=== PATIENT | female | born 1960 | race Caucasian/White ===

== ENCOUNTER → 2017-02-11 | Outpatient (CLI) | payer OTHER ==
[~2017-02-11] MED LIST: CLON2TAB2 PO; FLUO20CA19 PO; GABA600T PO; OMEP20CA9 PO; OXYC-223 PO; OXYC5CAP4 PO; TURM500C7 PO; VALA500T4 PO
== END | disposition home or self-care (01) ==
LOC: CFH 08:32
PROVIDERS: ATTEND Internal Medicine Cardiovascular Disease
DX: I77.810 Thoracic aortic ectasia (principal); I08.3 Combined rheumatic disorders of mitral, aortic and tricuspid valves; E78.5 Hyperlipidemia, unspecified; Z87.891 Personal history of nicotine dependence
CPT/HCPCS: 93306

== ENCOUNTER → 2017-05-10 | Outpatient (CLI) | payer OTHER ==
[~2017-05-10] MED LIST changes: -OXYC-223 PO; +OXYC-306 PO; +OXYC5CAP2 PO; -OXYC5CAP4 PO
== END | disposition home or self-care (01) ==
LOC: CFH 09:46
PROVIDERS: ATTEND Internal Medicine
DX: K44.9 Diaphragmatic hernia without obstruction or gangrene (principal); R05 Cough
CPT/HCPCS: 71020

== ENCOUNTER → 2017-08-26 | Outpatient (CLI) | payer OTHER | END | disposition home or self-care (01) | LOC: CFH 12:13 | PROVIDERS: ATTEND Internal Medicine Cardiovascular Disease | DX: R07.89 Other chest pain (principal) | CPT/HCPCS: 78452; 93017; A9502 ==

== ENCOUNTER → 2018-02-28 | Outpatient (CLI) | payer OTHER | END | disposition home or self-care (01) | LOC: CFH 09:42 | PROVIDERS: ATTEND Internal Medicine Cardiovascular Disease | DX: I08.0 Rheumatic disorders of both mitral and aortic valves (principal); E78.5 Hyperlipidemia, unspecified | CPT/HCPCS: 93306 ==

== ENCOUNTER 2019-03-29 13:30 | Outpatient (CLI) | payer OTHER ==
[~2019-03-29 13:30] MED LIST changes: -CLON2TAB2 PO; +CLON2TAB9 PO
== END 2019-03-29 23:59 | disposition home or self-care (01) ==
LOC: CVU 13:30
PROVIDERS: ATTEND Internal Medicine Cardiovascular Disease
DX: I08.3 Combined rheumatic disorders of mitral, aortic and tricuspid valves (principal); E78.5 Hyperlipidemia, unspecified
CPT/HCPCS: 0399T; 93306

== ENCOUNTER 2020-02-05 11:13 | Emergency (ER) | payer OTHER ==
[~2020-02-05] VITALS: Ht 172.7 cm; Wt 95.4 kg
--- NOTE | 2020-02-05 11:32 | NUR ---
PT IN HOSPITAL GOWN. PT AMBULATING STEADILY TO BATHROOM TO PROVIDE URINE SAMPLE.
[2020-02-05] MEDS ORDERED: GLUCAGON 1 MG ONE ×2 (11:56→12:05)
[2020-02-05] MEDS ORDERED: ONDANSETRON 2MG/ML, 2ML ONE (11:56)
[2020-02-05] MEDS ORDERED: ONDANSETRON 2MG/ML, 2ML IVPush ONE (12:00)
[2020-02-05] MEDS ORDERED: GLUCAGON 1 MG IVPush ONE (12:00)
[2020-02-05] MEDS ORDERED: SODIUM CHLORIDE FLUSH 10ML SYR IVF ONE (12:00)
--- NOTE | 2020-02-05 12:02 | NUR ---
PT GOING FOR ESOPHOGRAM
[2020-02-05 12:18] LABS: ALANINE AMINOTRANSFERASE 39 U/L (12-78); ALBUMIN 3.8 g/dL (3.4-5.0); ANION GAP 12 mmol/L (5-15); CHLORIDE 113 mmol/L (98-107); CREATININE 0.84 mg/dL (0.55-1.02)
[2020-02-05 12:20] LABS: ALKALINE PHOSPHATASE 77 U/L (45-117); BILIRUBIN,TOTAL 0.4 mg/dL (0.2-1.0); TOTAL PROTEIN 8.2 g/dL (6.4-8.2)
[2020-02-05 12:24] LABS: BASOPHILS # (AUTO) 0.05 x10^3/uL (0-0.1); BASOPHILS % (AUTO) 1 % (0-1); EOSINOPHILS # (AUTO) 0.15 x10^3/uL (0-0.4); EOSINOPHILS % (AUTO) 1 % (1-7); LYMPHOCYTES # (AUTO) 1.35 x10^3/uL (1-3.4); LYMPHOCYTES % (AUTO) 13 % (22-44); MD NO; MEAN CORPUSCULAR HGB CONC 32.3 g/dL (32.4-35.8); MEAN CORPUSCULAR VOLUME 99.1 fL (80-100); MEAN PLATELET VOLUME 8.4 fL (7.4-10.4); MONOCYTES # (AUTO) 0.71 x10^3/uL (0.2-0.8); MONOCYTES % (AUTO) 7 % (2-9); NEUTROPHILS # (AUTO) 8.18 x10^3/uL (1.8-6.8); NEUTROPHILS % (AUTO) 78 % (42-75); PLATELET COUNT 373 x10^3/uL (130-400); RED BLOOD COUNT 4.25 x10^6/uL (3.82-5.3); RED CELL DISTRIBUTION WIDTH 14.8 % (9.6-15.2)
[2020-02-05] MEDS ORDERED: OMNIPAQUE 350 MG/ML, 150 ML BOTTLE ONE (12:27)
[2020-02-05] MEDS ORDERED: KETOROLAC 30 MG/1 ML ONE (12:46)
[2020-02-05] MEDS ORDERED: KETOROLAC 30 MG/1 ML IVPush ONE (13:00)
[2020-02-05] MEDS ORDERED: FENTANYL PF 100 MCG/2ML ONE ×2 (13:31)
[2020-02-05] MEDS ORDERED: MIDAZOLAM 1 MG/ML, 5ML ONE ×2 (13:32)
--- NOTE | 2020-02-05 13:36 | NUR ---
PT STATED SHE FELT BETTER AFTER ORDERED MED GIVEN. ERP AWARE, PT GIVEN WATER. PT HOWEVER UNABLE TO HOLD WATER DOWN. PT TO BE MOVED TO TRAUMA ROOM FOR SEDATION.
--- NOTE | 2020-02-05 13:47 | NUR ---
JAYNE RN: ENDOSCOPY TEAM AT .
[2020-02-05] MEDS ORDERED: PROPOFOL 10 MG/ML, 20ML ONE ×2 (13:52→14:03)
[2020-02-05] MEDS ORDERED: PROPOFOL 10 MG/ML, 20ML IVPush ONE (14:00)
[2020-02-05] MEDS ORDERED: KETAMINE 10 MG/ML, 20ML ONE (14:11)
--- NOTE | 2020-02-05 14:25 | NUR ---
PT JUST FINISHED WITH ENDO TEAM. PT A&OX4, WILL CONTINUE TO MONITOR.
[2020-02-05 15:17] VITALS: BP 134/89
== END 2020-02-05 15:26 | disposition home or self-care (01) ==
LOC: ED 12:11
DX: T18.128A Food in esophagus causing other injury, initial encounter (principal); R11.2 Nausea with vomiting, unspecified; R94.31 Abnormal electrocardiogram [ECG] [EKG]; X58.XXXA Exposure to other specified factors, initial encounter; Y93.89 Activity, other specified; Y92.89 Other specified places as the place of occurrence of the external cause; Y99.8 Other external cause status
CPT/HCPCS: 36415; 43247; 74220; 80053; 85025; 93005; 96374; 96375; 99152; 99285; J1610; J1885; J2250; J2405; J3010; Q9967

== ENCOUNTER → 2020-04-01 | Outpatient (CLI) | payer OTHER | END | disposition home or self-care (01) | LOC: CFH 08:50 | PROVIDERS: ATTEND Internal Medicine Cardiovascular Disease | DX: I08.3 Combined rheumatic disorders of mitral, aortic and tricuspid valves (principal); E78.2 Mixed hyperlipidemia | CPT/HCPCS: 75571; 93306 ==

== ENCOUNTER 2020-05-12 10:02 | Inpatient (IN) | payer OTHER ==
[2020-05-12] VITALS (11 sets, daily range): BP systolic 96–130; BP diastolic 62–84
[~2020-05-12] VITALS: Ht 172.7 cm; Wt 92.8 kg
--- NOTE | 2020-05-12 10:34 | NUR ---
PT BIB [facility] FROM HOME. PT STATES DIZZINESS AND G/O WEAKNESS X2 DAYS WELL. UPON ARRIVAL AT PT'S SIDE, EMS DID AN EKG, PT NOTED PER EMS TO BE IN AN SVT RHYTHM. PT GIVEN ADENOSINE 6MG IV X1 BY EMS, PT THEN CONVERTED TO A SINUS TACHY RHYTHM PER EMS. 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 UPON ARRIVAL TO ER, PT STATES "I FEEL MUCH BETTER." PT PLACED ON MONITORS, VSS. ERMD AT BEDSIDE FOR ASSESSMENT.
[2020-05-12 10:51] LABS: MEAN CORPUSCULAR HEMOGLOBIN 31.5 pg (27.0-34.8); MEAN CORPUSCULAR HGB CONC 31.7 g/dL (32.4-35.8); MEAN CORPUSCULAR VOLUME 99.3 fL (80-100); MEAN PLATELET VOLUME 8.2 fL (7.4-10.4); PLATELET COUNT 294 x10^3/uL (130-400); RED BLOOD COUNT 2.43 x10^6/uL (3.82-5.3); RED CELL DISTRIBUTION WIDTH 19.1 % (9.6-15.2)
[2020-05-12 10:58] LABS: PROTHROMBIN TIME 10.3 Seconds (9.6-11.5)
[2020-05-12 11:01] LABS: ALBUMIN 2.9 g/dL (3.4-5.0); ANION GAP 7 mmol/L (5-15); CALCIUM 8.2 mg/dL (8.5-10.1); CHLORIDE 113 mmol/L (98-107)
[2020-05-12 11:05] LABS: ALANINE AMINOTRANSFERASE 39 U/L (12-78); ALKALINE PHOSPHATASE 37 U/L (45-117); BILIRUBIN,TOTAL 0.2 mg/dL (0.2-1.0); CREATININE 0.75 mg/dL (0.55-1.02); TOTAL PROTEIN 5.7 g/dL (6.4-8.2)
[2020-05-12 11:15] LABS: BASOPHILS # (AUTO) 0.01 x10^3/uL (0-0.1); BASOPHILS % (AUTO) 0 % (0-1); EOSINOPHILS # (AUTO) 0.05 x10^3/uL (0-0.4); EOSINOPHILS % (AUTO) 0 % (1-7); LYMPHOCYTES # (AUTO) 1.74 x10^3/uL (1-3.4); LYMPHOCYTES % (AUTO) 12 % (22-44); MD MORPH REVIEW ONLY; MONOCYTES % (AUTO) 6 % (2-9); NEUTROPHILS # (AUTO) 11.37 x10^3/uL (1.8-6.8); NEUTROPHILS % (AUTO) 81 % (42-75)
[2020-05-12 11:16] LABS: <PLATELET ESTIMATE> ADEQUATE; <PLT MORPHOLOGY> NORMAL PLT MORPH; ANISOCYTOSIS 1+; HYPOCHROMIA 1+; OVALOCYTES 1+; POLYCHROMASIA 1+
--- NOTE | 2020-05-12 11:48 | NUR ---
FIELD SUPPORT ENGINEER FACIAL FRACTURE DOCTOR PAGED @[phone] AND ANSWERED @[phone]
--- NOTE | 2020-05-12 11:49 | NUR ---
WASTEWATER SUPERVISOR Ezequiel GODOY PAGED AGAIN @[phone]
--- NOTE | 2020-05-12 11:56 | NUR ---
PANEL MACHINE SETTER Ezequiel IN ER AND MADE CONTACT WITH E.R. DOCTOR.
--- NOTE | 2020-05-12 12:15 | NUR ---
PT BLOOD STARTED PER ORDERS. ALL APPROPRIATE PRE ADMINISTRATION CHECKS DONE PER PROTOCOL. [facility], PT AWARE OF POC. PT'S AT BEDSIDE. REMAINS ON MONITORS, VSS. CONT TO MONITOR.
[2020-05-12] MEDS ORDERED: LORazepam 2 MG/ML, 1ML IVPush ONE (12:30)
[2020-05-12] MEDS ORDERED: LORazepam 2 MG/ML, 1ML ONE (12:41)
[2020-05-12] MEDS ORDERED: PANTOPRAZOLE 40 MG IV ONE (12:41)
[2020-05-12] MEDS: PANTOPRAZOLE 40 MG IV IVPush SCH (12:46)
[2020-05-12] MEDS ORDERED: OXYcodone/APAP 7.5/325MG TABLET PO PRN (13:00)
[2020-05-12] MEDS ORDERED: ONDANSETRON ODT 4 MG PO PRN (13:00)
[2020-05-12] MEDS ORDERED: ONDANSETRON 2MG/ML, 2ML IVPush PRN (13:00)
--- NOTE | 2020-05-12 13:08 | NUR ---
PT TOLERATING BLOOD TRANSFUSING WELL. REPORT GIVEN TO SAMARIA RN, PT OK TO TRANSFER TO FLOOR.
--- NOTE | 2020-05-12 13:22 | NUR ---
PT TRANSFERED TO FLOOR, HAS ALL OWN BELONGINGS UPON TRANSFER. BLOOD STILL INFUSING UPON TRANSFER.
[2020-05-12] MEDS: CEFTRIAXONE PMX 2GM/50ML 50 ML IV SCH (14:25)
[2020-05-12] MEDS: LACTATED RINGERS 1,000 ML IV SCH (14:38)
[2020-05-12] MEDS: ACETAMINOPHEN 325 MG TABLET PO PRN (15:17)
[2020-05-12] MEDS ORDERED: TURMERIC ROOT EXTRACT PO SCH (16:00)
[2020-05-12] MEDS ORDERED: LORazepam 0.5MG TABLET PO ONE (16:00)
[2020-05-12] MEDS: LACTOBACILLUS CHEW TABLET PO SCH ×2 (16:21→20:00)
[2020-05-12] MEDS ORDERED: GABA-826 PO (16:43)
[2020-05-12] MEDS ORDERED: FLUO25PO PO (16:50)
[2020-05-12] MEDS: VALACYCLOVIR 500MG TABLET PO SCH (19:59)
[2020-05-12] MEDS: GABAPENTIN 400 MG CAPSULE PO SCH (20:00)
[2020-05-13] VITALS (13 sets, daily range): BP systolic 95–125; BP diastolic 40–85
[2020-05-13] MEDS: PANTOPRAZOLE 40 MG IV IVPush SCH ×3 (01:14→13:48)
[2020-05-13] MEDS: MELATONIN 5 MG TABLET PO PRN ×2 (01:14→20:19)
[2020-05-13] MEDS: ACETAMINOPHEN 325 MG TABLET PO PRN ×2 (03:26→14:48)
[2020-05-13] MEDS ORDERED: ADENOSINE 6 MG/2 ML IVPush ONE ×4 (05:30→13:00)
[2020-05-13 05:32] LABS: CHLORIDE 113 mmol/L (98-107)
[2020-05-13 05:37] LABS: % IRON SATURATION 25 % (20-55); ANION GAP 8 mmol/L (5-15); CALCIUM 8.5 mg/dL (8.5-10.1); CREATININE 0.71 mg/dL (0.55-1.02); IRON LEVEL 77 mcg/dL (50-170); TOTAL IRON BINDING CAPACITY 303 mcg/dL (250-450)
[2020-05-13] MEDS: LACTATED RINGERS 1,000 ML IV SCH ×2 (06:41→14:37)
[2020-05-13] MEDS ORDERED: CHLORHEXIDINE 15 ML UDC MM ONE (08:00)
[2020-05-13] MEDS ORDERED: GABAPENTIN 300 MG CAPSULE PO SCH (09:00)
[2020-05-13] MEDS: VALACYCLOVIR 500MG TABLET PO SCH ×2 (09:02→20:19)
[2020-05-13] MEDS: FLUOXETINE 10 MG CAP PO SCH (09:02)
[2020-05-13] MEDS: LACTOBACILLUS CHEW TABLET PO SCH ×3 (09:02→20:19)
[2020-05-13 10:20] LABS: MEAN CORPUSCULAR HEMOGLOBIN 31.5 pg (27.0-34.8); MEAN CORPUSCULAR HGB CONC 32.3 g/dL (32.4-35.8); MEAN CORPUSCULAR VOLUME 97.7 fL (80-100); MEAN PLATELET VOLUME 7.9 fL (7.4-10.4); PLATELET COUNT 257 x10^3/uL (130-400); RED BLOOD COUNT 2.45 x10^6/uL (3.82-5.3); RED CELL DISTRIBUTION WIDTH 18.8 % (9.6-15.2)
[2020-05-13 10:46] LABS: BASOPHILS # (AUTO) 0.04 x10^3/uL (0-0.1); BASOPHILS % (AUTO) 1 % (0-1); EOSINOPHILS # (AUTO) 0.14 x10^3/uL (0-0.4); EOSINOPHILS % (AUTO) 2 % (1-7); LYMPHOCYTES # (AUTO) 1.35 x10^3/uL (1-3.4); LYMPHOCYTES % (AUTO) 18 % (22-44); MD SCAN; MONOCYTES # (AUTO) 0.51 x10^3/uL (0.2-0.8); MONOCYTES % (AUTO) 7 % (2-9); NEUTROPHILS # (AUTO) 5.37 x10^3/uL (1.8-6.8); NEUTROPHILS % (AUTO) 72 % (42-75)
[2020-05-13] MEDS ORDERED: ADENOSINE 6 MG/2 ML ONE ×2 (11:46→11:50)
[2020-05-13] MEDS ORDERED: METOPROLOL 1 MG/ML, 5ML ONE (12:41)
[2020-05-13] MEDS ORDERED: METOPROLOL 1 MG/ML, 5ML IVPush ONE (13:00)
[2020-05-13] MEDS: DILTIAZEM 125 MG in SODIUM CHLORIDE 0.9% 100 ML IV SCH (13:42)
[2020-05-13] MEDS: CEFTRIAXONE PMX 2GM/50ML 50 ML IV SCH (13:47)
[2020-05-13] MEDS: GABAPENTIN 400 MG CAPSULE PO SCH (20:19)
[2020-05-14 00:58] VITALS: BP 113/71
[2020-05-14] MEDS: PANTOPRAZOLE 40 MG IV IVPush SCH ×2 (01:17→07:30)
[2020-05-14] MEDS: LACTATED RINGERS 1,000 ML IV SCH (01:17)
[2020-05-14] MEDS: DILTIAZEM 125 MG in SODIUM CHLORIDE 0.9% 100 ML IV SCH ×2 (01:23→03:09)
[2020-05-14 05:22] LABS: MEAN CORPUSCULAR HEMOGLOBIN 31.8 pg (27.0-34.8); MEAN CORPUSCULAR HGB CONC 31.9 g/dL (32.4-35.8); MEAN CORPUSCULAR VOLUME 99.7 fL (80-100); PLATELET COUNT 250 x10^3/uL (130-400); RED BLOOD COUNT 2.28 x10^6/uL (3.82-5.3); RED CELL DISTRIBUTION WIDTH 19.1 % (9.6-15.2)
[2020-05-14 05:59] LABS: BASOPHILS # (AUTO) 0.05 x10^3/uL (0-0.1); BASOPHILS % (AUTO) 1 % (0-1); EOSINOPHILS # (AUTO) 0.21 x10^3/uL (0-0.4); EOSINOPHILS % (AUTO) 3 % (1-7); LYMPHOCYTES # (AUTO) 1.08 x10^3/uL (1-3.4); LYMPHOCYTES % (AUTO) 14 % (22-44); MD SCAN; MONOCYTES % (AUTO) 9 % (2-9); NEUTROPHILS # (AUTO) 5.54 x10^3/uL (1.8-6.8); NEUTROPHILS % (AUTO) 73 % (42-75)
[2020-05-14] MEDS: SODIUM CHLORIDE 0.9% 1,000 ML IV SCH ×2 (08:33→14:56)
[2020-05-14] MEDS: VALACYCLOVIR 500MG TABLET PO SCH ×2 (08:33→21:11)
[2020-05-14] MEDS: FLUOXETINE 10 MG CAP PO SCH (08:33)
[2020-05-14] MEDS: LACTOBACILLUS CHEW TABLET PO SCH ×3 (08:33→21:11)
[2020-05-14 08:51] VITALS: BP 135/79
[2020-05-14] MEDS ORDERED: MIDAZOLAM 1 MG/ML, 2ML ONE (11:13)
[2020-05-14] MEDS ORDERED: FENTANYL PF 100 MCG/2ML ONE (11:13)
[2020-05-14] MEDS ORDERED: LIDOCAINE 1%, 20ML ONE (11:13)
[2020-05-14] MEDS ORDERED: ISOPROTERENOL 0.2MG/ML, 5ML ONE (11:48)
[2020-05-14] MEDS ORDERED: ACETAMINOPHEN 325 MG TABLET PO PRN (13:00)
[2020-05-14] MEDS: CEFTRIAXONE PMX 2GM/50ML 50 ML IV SCH (13:40)
[2020-05-14 14:00] VITALS: BP 116/77
[2020-05-14 14:03] LABS: ANION GAP 9 mmol/L (5-15); CALCIUM 8.7 mg/dL (8.5-10.1); CHLORIDE 111 mmol/L (98-107); CREATININE 0.67 mg/dL (0.55-1.02)
[2020-05-14] MEDS: ACETAMINOPHEN 325 MG TABLET PO PRN (16:38)
[2020-05-14 19:52] VITALS: BP 135/81
[2020-05-14] MEDS: MELATONIN 5 MG TABLET PO PRN (21:11)
[2020-05-14] MEDS: GABAPENTIN 400 MG CAPSULE PO SCH (21:11)
[2020-05-14 23:41] VITALS: BP 119/68
[2020-05-15 00:30] VITALS: BP 120/68
[2020-05-15 05:36] LABS: MEAN CORPUSCULAR HEMOGLOBIN 32.4 pg (27.0-34.8); MEAN CORPUSCULAR HGB CONC 32.9 g/dL (32.4-35.8); MEAN CORPUSCULAR VOLUME 98.4 fL (80-100); MEAN PLATELET VOLUME 8.2 fL (7.4-10.4); PLATELET COUNT 288 x10^3/uL (130-400); RED BLOOD COUNT 2.48 x10^6/uL (3.82-5.3); RED CELL DISTRIBUTION WIDTH 18.7 % (9.6-15.2)
[2020-05-15] MEDS: PANTOPRAZOLE 40MG TABLET PO SCH (05:41)
[2020-05-15 06:07] LABS: BASOPHILS # (AUTO) 0.02 x10^3/uL (0-0.1); BASOPHILS % (AUTO) 0 % (0-1); EOSINOPHILS # (AUTO) 0.21 x10^3/uL (0-0.4); EOSINOPHILS % (AUTO) 3 % (1-7); LYMPHOCYTES # (AUTO) 1.34 x10^3/uL (1-3.4); LYMPHOCYTES % (AUTO) 16 % (22-44); MD SCAN; MONOCYTES # (AUTO) 0.74 x10^3/uL (0.2-0.8); MONOCYTES % (AUTO) 9 % (2-9); NEUTROPHILS # (AUTO) 6.01 x10^3/uL (1.8-6.8); NEUTROPHILS % (AUTO) 72 % (42-75)
[2020-05-15] MEDS: ACETAMINOPHEN 325 MG TABLET PO PRN (06:28)
[2020-05-15 07:22] VITALS: BP 122/80
[2020-05-15] MEDS: VALACYCLOVIR 500MG TABLET PO SCH ×2 (09:02→20:17)
[2020-05-15] MEDS: LACTOBACILLUS CHEW TABLET PO SCH ×3 (09:02→20:17)
[2020-05-15] MEDS: FLUOXETINE 10 MG CAP PO SCH (09:02)
[2020-05-15] MEDS ORDERED: PROPOFOL 50 ML ONE (11:05)
[2020-05-15 12:09] VITALS: BP 110/71
[2020-05-15] MEDS ORDERED: CHLORHEXIDINE 15 ML UDC ONE (13:19)
[2020-05-15] MEDS ORDERED: CHLORHEXIDINE 15 ML UDC MM ONE (13:30)
[2020-05-15] MEDS ORDERED: ACETAMINOPHEN 650 MG/20.3 ML UDC ONE (14:18)
[2020-05-15] MEDS ORDERED: FENTANYL PF 100 MCG/2ML IV PRN (14:30)
[2020-05-15] MEDS ORDERED: hydrALAzine 20 MG/ML, 1ML IV PRN (14:30)
[2020-05-15] MEDS ORDERED: EPHEDRINE 50 MG/ML, 1ML IVPush PRN (14:30)
[2020-05-15] MEDS ORDERED: ONDANSETRON 2MG/ML, 2ML IVPush PRN (14:30)
[2020-05-15] MEDS ORDERED: ACETAMINOPHEN 325 MG TABLET PO PRN (14:30)
[2020-05-15] MEDS ORDERED: LABETALOL 5MG/ML, 20ML IV PRN (14:30)
[2020-05-15] MEDS ORDERED: MEPERIDINE/PF 25MG/0.5ML IVPush PRN (14:30)
[2020-05-15] MEDS ORDERED: HYDROmorphone 1 MG/ML, 1ML INJ IVPush PRN (14:30)
[2020-05-15] MEDS ORDERED: PROMETHAZINE 25 MG/ML, 1ML IVPush PRN (14:30)
[2020-05-15] MEDS ORDERED: OXYcodone 5 MG/5 ML ORAL.SOL UDC PO PRN (14:30)
[2020-05-15] MEDS: CEFTRIAXONE PMX 2GM/50ML 50 ML IV SCH (14:45)
[2020-05-15 20:02] VITALS: BP 135/69
[2020-05-15] MEDS: GABAPENTIN 400 MG CAPSULE PO SCH (20:17)
[2020-05-15] MEDS: MELATONIN 5 MG TABLET PO PRN (20:19)
[2020-05-16 00:41] VITALS: BP 105/68
[2020-05-16] MEDS: PANTOPRAZOLE 40MG TABLET PO SCH (05:26)
[2020-05-16] MEDS ORDERED: DIPHENHYDRAMINE 25 MG CAPSULE PO ONE (06:00)
[2020-05-16 06:18] VITALS: BP 122/78
[2020-05-16] MEDS: LACTOBACILLUS CHEW TABLET PO SCH (09:27)
[2020-05-16] MEDS: FLUOXETINE 10 MG CAP PO SCH (09:27)
[2020-05-16] MEDS: VALACYCLOVIR 500MG TABLET PO SCH (09:27)
[2020-05-16] MEDS ORDERED: ACID1TAB7 PO (11:57)
[2020-05-16] MEDS ORDERED: PANT40TA6 PO (11:57)
[2020-05-16 12:18] VITALS: BP 117/79
[2020-05-16] MEDS ORDERED: PANTOPRAZOLE 40MG TABLET PO SCH (21:00)
== END 2020-05-16 18:04 | disposition home or self-care (01) | DRG 273 ==
LOC: ED 11:16 → EDIP 12:24 → 5SO 13:21
PROVIDERS: ADMIT Internal Medicine; ATTEND Internal Medicine
PROC: 02583ZZ Destruction of Conduction Mechanism, Percutaneous Approach (ICD-10-PCS; principal; 2020-05-12)
PROC: 4A0234Z Measurement of Cardiac Electrical Activity, Percutaneous Approach (ICD-10-PCS; 2020-05-12)
PROC: 30233P1 Transfusion of Nonautologous Frozen Red Cells into Peripheral Vein, Percutaneous Approach (ICD-10-PCS; 2020-05-12)
PROC: 5A09357 Assistance with Respiratory Ventilation, Less than 24 Consecutive Hours, Continuous Positive Airway Pressure (ICD-10-PCS; 2020-05-13)
PROC: 0DJ08ZZ Inspection of Upper Intestinal Tract, Via Natural or Artificial Opening Endoscopic (ICD-10-PCS; 2020-05-15)
DX: I47.1 Supraventricular tachycardia (principal); K25.4 Chronic or unspecified gastric ulcer with hemorrhage; R57.0 Cardiogenic shock; D62 Acute posthemorrhagic anemia; E66.9 Obesity, unspecified; E78.2 Mixed hyperlipidemia; E86.1 Hypovolemia; F41.9 Anxiety disorder, unspecified; G47.33 Obstructive sleep apnea (adult) (pediatric); I25.10 Atherosclerotic heart disease of native coronary artery without angina pectoris; I71.2 Thoracic aortic aneurysm, without rupture; K21.9 Gastro-esophageal reflux disease without esophagitis; K44.9 Diaphragmatic hernia without obstruction or gangrene; K76.0 Fatty (change of) liver, not elsewhere classified; Z53.9 Procedure and treatment not carried out, unspecified reason; E86.0 Dehydration; F10.10 Alcohol abuse, uncomplicated; F32.9 Major depressive disorder, single episode, unspecified; Z66 Do not resuscitate; Y90.9 Presence of alcohol in blood, level not specified; Z87.891 Personal history of nicotine dependence; Z90.49 Acquired absence of other specified parts of digestive tract; Z93.3 Colostomy status; Z93.2 Ileostomy status; Z86.14 Personal history of Methicillin resistant Staphylococcus aureus infection; Z68.31 Body mass index [BMI] 31.0-31.9, adult
CPT/HCPCS: 36415; 93613; 93621; 93623; 93653; 96374; 99285; J3490; 36430; 71045; 80048; 80053; 83540; 83550; 85018; 85025; 85610; 85730; 86850; 86900; 86923; 87635; 93005; 99156; 99157; C1766; C1894; G0378; J0153; J0696; J2250; J2704; J3010; C1730; C2630; C9113; J2060; J7030; J7120; P9016; Q0163

== ENCOUNTER → 2020-07-12 | Outpatient (CLI) | payer OTHER ==
[~2020-07-12] MED LIST changes: +ACID1TAB7 PO; +FLUO25PO PO; +GABA-826 PO; +PANT40TA6 PO
== END | disposition home or self-care (01) ==
LOC: CVU 12:44
PROVIDERS: ATTEND Physician Assistant Medical
DX: I83.93 Asymptomatic varicose veins of bilateral lower extremities (principal); R60.9 Edema, unspecified
CPT/HCPCS: 93970